=== PATIENT | male | born 1955 | race Caucasian/White ===

== ENCOUNTER 2021-01-30 03:56 | Emergency (ER) | payer OTHER ==
[~2021-01-30] VITALS: Ht 180.3 cm; Wt 113.4 kg
[2021-01-30 04:05] VITALS: BP_SYST 123
[2021-01-30] MEDS ORDERED: HYDR25TA4 PO (04:25)
[2021-01-30 04:36] LABS: BASOPHILS # (AUTO) 0.1 K/uL (0.0-0.2); BASOPHILS % (AUTO) 1.3 % (0.0-2.0); EOSINOPHILS # (AUTO) 0.1 K/uL (0.0-0.4); HEMOGLOBIN 14.3 g/dL (14.0-18.0); LYMPHOCYTES # (AUTO) 1.3 K/uL (1.0-5.5); LYMPHOCYTES % (AUTO) 25.9 % (20.5-51.5); MEAN CORPUSCULAR HEMOGLOBIN 32 pg (27-31); MEAN CORPUSCULAR HGB CONC 34 % (32-36); MEAN CORPUSCULAR VOLUME 94 fL (79.0-98.0); MONOCYTES # (AUTO) 0.8 K/uL (0.0-1.0); MONOCYTES % (AUTO) 15.6 % (1.7-9.3); NEUTROPHILS # (AUTO) 2.8 K/uL (1.8-7.7); NEUTROPHILS % (AUTO) 56.2 % (40.0-70.0); PLATELET COUNT (AUTO) 143 K/uL (130-430); RED BLOOD CELL COUNT(AUTO) 4.45 MIL/uL (4.2-6.2); RED CELL DISTRIBUTION WIDTH 16.6 % (9.0-15.0)
[2021-01-30 04:47] LABS: CALCIUM 9.2 mg/dL (8.4-11.0); CREATININE 0.89 mg/dL (0.55-1.30); POTASSIUM 3.5 mmol/L (3.5-5.1)
[2021-01-30 04:52] LABS: TOTAL BILIRUBIN 1.2 mg/dL (0.0-1.0)
[2021-01-30] MEDS ORDERED: IPRATROPIUM/ALBUTEROL SULFATE 3 ML AMPUL.NEB (DUONEB) INH ONE (05:00)
[2021-01-30] MEDS ORDERED: IPRATROPIUM/ALBUTEROL SULFATE 3 ML AMPUL.NEB (DUONEB) ONE (05:04)
[2021-01-30] MEDS ORDERED: IOHEXOL 350 mgI/mL, 150 ML INFUS..BTL IV ONE (05:38)
[2021-01-30] MEDS ORDERED: NACL 0.9% 1,000 ML IV ONE (05:45)
[2021-01-30] MEDS ORDERED: FUROSEMIDE 20 MG/2 ML VIAL IVP ONE (07:15)
[2021-01-30] MEDS ORDERED: DEXAMETHASONE SOD PHOSPHATE 10 MG/ML VIAL IVP ONE (07:15)
[2021-01-30] MEDS ORDERED: FURO-150 PO (07:29)
[2021-01-30] MEDS ORDERED: POTA8CAP20 PO (07:29)
[2021-01-30] MEDS ORDERED: PRED20TA PO (07:29)
[2021-01-30] MEDS ORDERED: ALBMDI INH (07:29)
[2021-01-30 08:55] VITALS: BP_SYST 143
== END 2021-01-30 08:55 | disposition home or self-care (01) ==
LOC: SED 03:56
DX: J98.01 Acute bronchospasm (principal); I50.9 Heart failure, unspecified; Z79.899 Other long term (current) drug therapy; Z20.822 Contact with and (suspected) exposure to COVID-19
CPT/HCPCS: 36415; 71045; 71275; 76376; 80053; 83880; 84484; 85025; 85379; 85610; 85730; 87426; 93005; 94640; 96361; 96374; 96375; 99285; J1100; J1940; J7040; Q9967

== ENCOUNTER 2022-04-10 14:08 | Inpatient (IN) | payer OTHER ==
[~2022-04-10] VITALS: Ht 177.8 cm; Wt 94.4 kg
[~2022-04-10 14:08] MED LIST: ALBMDI INH; FURO-150 PO; HYDR25TA4 PO; POTA8CAP20 PO; PRED20TA PO
--- NOTE | 2022-04-10 14:08 | NUR ---
PT PLACED IN BED 7. REPORT TO LENA OCASIO
--- NOTE | 2022-04-10 14:09 | NUR ---
MD ROCHA AT BEDSIDE ASSESSING PT.
[2022-04-10 14:24] VITALS: BP_SYST 103
--- NOTE | 2022-04-10 14:41 | NUR ---
IV ACCESS TO THE LEFT AC IN ONE ATTEMPT WITH 20G. BLOOD DRAWN AT SAME TIME.
--- NOTE | 2022-04-10 14:51 | NUR ---
PT IN CT AT THIS TIME, AT BEDSIDE
[2022-04-10 14:59] LABS: BASOPHILS % (AUTO) 0.3 % (0.0-2.0); EOSINOPHILS % (AUTO) 0.1 % (0.0-4.0); HEMATOCRIT 30.8 % (36-54); HEMOGLOBIN 10.5 g/dL (14.0-18.0); LYMPHOCYTES # (AUTO) 0.4 K/uL (1.0-5.5); LYMPHOCYTES % (AUTO) 3.1 % (20.5-51.5); MEAN CORPUSCULAR HEMOGLOBIN 34 pg (27-31); MEAN CORPUSCULAR HGB CONC 34 % (32-36); MEAN CORPUSCULAR VOLUME 101 fL (79.0-98.0); MONOCYTES # (AUTO) 0.5 K/uL (0.0-1.0); MONOCYTES % (AUTO) 4.1 % (1.7-9.3); NEUTROPHILS % (AUTO) 92.4 % (40.0-70.0); PLATELET COUNT (AUTO) 392 K/uL (130-430); RED BLOOD CELL COUNT(AUTO) 3.05 MIL/uL (4.2-6.2); RED CELL DISTRIBUTION WIDTH 15.2 % (9.0-15.0)
[2022-04-10 15:09] LABS: INR 1.9 (0.80-1.20); PROTHROMBIN TIME 18.9 SECS (9.5-12.5)
[2022-04-10 15:14] LABS: ANION GAP 17 (5-15); CALCIUM 7.8 mg/dL (8.4-11.0); CHLORIDE 112 mmol/L (98-107); CREATININE 3.72 mg/dL (0.55-1.30); GLUCOSE 105 mg/dL (70-99); SODIUM SERUM 139 mmol/L (136-145); UREA NITROGEN, BLOOD 58 mg/dL (8-21)
[2022-04-10 15:19] LABS: GFR AFRICAN AMERICAN 21 mL/min (>90)
[2022-04-10] MEDS ORDERED: NACL 0.9% 1,000 ML IV ONE (15:30)
[2022-04-10 15:31] LABS: ALANINE AMINOTRANSFERASE 99 U/L (12-78); ALBUMIN 1.3 g/dL (3.4-4.8); ASPARTATE AMINOTRANSFERASE 182 U/L (10-37)
[2022-04-10 15:35] LABS: ACETAMINOPHEN < 1 ug/mL (1-30); ALCOHOL, BLOOD < 3 mg/dL (<10)
[2022-04-10 15:36] LABS: TOTAL BILIRUBIN 26.4 mg/dL (0.0-1.0)
--- NOTE | 2022-04-10 15:36 | NUR ---
TOTAL BILI 26.4 ERMD AWARE
--- NOTE | 2022-04-10 16:24 | NUR ---
ABGS DRAWN AT THIS TIME
[2022-04-10] MEDS ORDERED: LACTULOSE 20 GM/30 ML UDC PO ONE (17:30)
--- NOTE | 2022-04-10 17:48 | NUR ---
Admit bed requested Patient will be admitted to care of Dr. Patel. Admitted to ICU unit. Diagnosis Metabolic encephalopathy Inpatient (Yes or No) Y Observation (Yes or No) N Orientation concerns or request close to nursing station (Yes or No) N Covid Status Neg On vent or bipap N Isolation requirements N Needs a sitter N From Home (Yes or if No enter name of facility) Y Requires Dialysis (Yes or No) N Med Rec Completed (Yes of No) Y
[2022-04-10] MEDS ORDERED: LACTULOSE 20 GM/30 ML UDC NG SCH (18:00)
--- NOTE | 2022-04-10 18:01 | NUR ---
US AT BEDSIDE AT THIS TIME
[2022-04-10] MEDS: D5NS 1,000 ML IV SCH (18:53)
--- NOTE | 2022-04-10 18:58 | NUR ---
NG TUBE PLACED AT THIS TIME
--- NOTE | 2022-04-10 19:20 | NUR ---
Received report at this time. Pt lying in stretcher currently on monitor.
--- NOTE | 2022-04-10 19:45 | NUR ---
Attempted to place ng tube; however, device recoiled up in mouth. 1rst ng tube placed by previous nurse is not placed properly according to imaging.
--- NOTE | 2022-04-10 20:14 | NUR ---
Endorsed ng tube placement and medication lactulose off to icu nurse.
--- NOTE | 2022-04-10 20:15 | NUR ---
Patient will be admitted to care of Dr. Bo . Admitted to icu unit. Will go to room 7 . Belongings list completed. Complete and up to date summary report printed. SBAR report given to NINFA Coughlin at bedside with opportunity for questions.
[2022-04-10 20:25] VITALS: BP_SYST 114
--- NOTE | 2022-04-10 20:25 | NUR ---
Opening notes Received report from endorsing RAYON CONERNINFA King for continuity of care. Patient is lying in the gurney and was transferred to ICU bed in no signs of distress. Patient has a IV access on the L AC 20 gauge running is D5NS @ 150 mL/hr. Patient's vital signs blood pressure 114/49, heart rate 77, respirations 17, and SPO2 96% on room air. Bed is locked and in lowest position, fall and safety precautions is in place.
[2022-04-10] MEDS ORDERED: LevALBUTEROL HCL 1.25 MG/0.5 ML *CONC.* VIAL.NEB (XOPENEX CONC.) INH PRN (20:45)
[2022-04-10 21:00] VITALS: BP_SYST 124
[2022-04-10 21:06] VITALS: BP_SYST 101
[2022-04-10 22:00] VITALS: BP_SYST 119
[2022-04-10 23:00] VITALS: BP_SYST 112
--- NOTE | 2022-04-10 23:00 | NUR ---
NG Tube and Paulson Catheter Inserted right NG tube and paulson catheter per MD's order. Patient tolerated the procedure. Confirmed placement of the NG tube via x-ray.
[2022-04-10] MEDS: LevALBUTEROL HCL 1.25 MG/0.5 ML *CONC.* VIAL.NEB (XOPENEX CONC.) INH SCH (23:05)
[2022-04-11] VITALS (23 sets, daily range): BP systolic 105–142
[2022-04-11] MEDS: METHYLPREDNISOLONE SOD SUCC 40 MG/ML VIAL IVP SCH ×3 (00:20→20:52)
[2022-04-11] MEDS: PANTOPRAZOLE SODIUM 40 MG/VIAL (PROTONIX) IVP SCH ×3 (00:21→20:52)
[2022-04-11] MEDS: D5NS 1,000 ML IV SCH ×4 (00:44→20:54)
--- NOTE | 2022-04-11 05:08 | NUR ---
PAGED DR. DUNBAR FOR CONSULT. SPOKE TO ON-CALL AGENT: APRIL AND WILL RELAY THE MESSAGE. -JOAN SEGOVIA RN
--- NOTE | 2022-04-11 05:16 | NUR ---
PAGED DR. HURTADO FOR CONSULT. SPOKE TO ON-CALL AGENT: TOMER AND WILL RELAY THE MESSAGE. -JOAN SEOGVIA RN
[2022-04-11 06:33] LABS: BASOPHILS % (AUTO) 0.1 % (0.0-2.0); EOSINOPHILS % (AUTO) 0.1 % (0.0-4.0); HEMATOCRIT 27.4 % (36-54); HEMOGLOBIN 9.3 g/dL (14.0-18.0); LYMPHOCYTES # (AUTO) 0.2 K/uL (1.0-5.5); LYMPHOCYTES % (AUTO) 2.5 % (20.5-51.5); MEAN CORPUSCULAR HEMOGLOBIN 35 pg (27-31); MEAN CORPUSCULAR HGB CONC 34 % (32-36); MEAN CORPUSCULAR VOLUME 102 fL (79.0-98.0); MONOCYTES # (AUTO) 0.2 K/uL (0.0-1.0); MONOCYTES % (AUTO) 2.8 % (1.7-9.3); NEUTROPHILS % (AUTO) 94.5 % (40.0-70.0); PLATELET COUNT (AUTO) 308 K/uL (130-430); RED CELL DISTRIBUTION WIDTH 15.4 % (9.0-15.0); WHITE BLOOD COUNT (AUTO) 8.4 K/uL (4.8-10.8)
[2022-04-11 06:47] LABS: ALBUMIN 1.2 g/dL (3.4-4.8); CALCIUM 7.1 mg/dL (8.4-11.0); POTASSIUM 3.8 mmol/L (3.5-5.1)
[2022-04-11] MEDS: LevALBUTEROL HCL 1.25 MG/0.5 ML *CONC.* VIAL.NEB (XOPENEX CONC.) INH SCH ×2 (07:31→15:36)
[2022-04-11] MEDS ORDERED: LACTULOSE 20 GM/30 ML UDC PO ONE (07:45)
[2022-04-11] MEDS ORDERED: RIFAXIMIN 550 MG TABLET PO ONE (08:00)
--- NOTE | 2022-04-11 09:01 | NUR ---
NOTIFIED OF CONSULT ( TRAFFIC ATTENDANT) ORDERING PHY: REASON FOR CONSULT: GI DIALED: [phone] SPOKE TO: GABE
[2022-04-11] MEDS: ALBUMIN HUMAN 25% 50 ML IV SCH ×3 (09:23→16:39)
[2022-04-11 10:00] LABS: TOTAL BILIRUBIN 24.6 mg/dL (0.0-1.0)
[2022-04-11 12:00] LABS: INR 1.9 (0.80-1.20)
[2022-04-11 12:05] LABS: PROTHROMBIN TIME 19.2 SECS (9.5-12.5)
[2022-04-11] MEDS: SODIUM BICARBONATE 8.4% JECT 150 MEQ in D5W 1,000 ML IVP SCH (13:23)
[2022-04-11] MEDS: PIPERACILLIN/TAZO 2.25G/DEX-IS 50 ML IV SCH ×3 (13:51→23:31)
[2022-04-11] MEDS: RIFAXIMIN 550 MG TABLET PO SCH ×2 (13:53→20:52)
[2022-04-11] MEDS: LACTULOSE 20 GM/30 ML UDC PO SCH ×3 (15:00→20:52)
[2022-04-11] MEDS ORDERED: HEPARIN SODIUM,PORCINE 5,000 UNITS/ML VIAL ONE (17:25)
[2022-04-12] VITALS (22 sets, daily range): BP systolic 108–139
[2022-04-12] MEDS: PIPERACILLIN/TAZO 2.25G/DEX-IS 50 ML IV SCH ×2 (05:33→18:18)
[2022-04-12] MEDS: SODIUM BICARBONATE 8.4% JECT 150 MEQ in D5W 1,000 ML IVP SCH ×2 (05:34→18:18)
[2022-04-12] MEDS: D5NS 1,000 ML IV SCH (05:34)
[2022-04-12 06:10] LABS: BASOPHILS % (AUTO) 0.2 % (0.0-2.0); LYMPHOCYTES # (AUTO) 0.2 K/uL (1.0-5.5); LYMPHOCYTES % (AUTO) 2.6 % (20.5-51.5); MEAN CORPUSCULAR HEMOGLOBIN 35 pg (27-31); MEAN CORPUSCULAR HGB CONC 35 % (32-36); MEAN CORPUSCULAR VOLUME 100 fL (79.0-98.0); MONOCYTES # (AUTO) 0.5 K/uL (0.0-1.0); NEUTROPHILS # (AUTO) 8.6 K/uL (1.8-7.7); NEUTROPHILS % (AUTO) 92.2 % (40.0-70.0); PLATELET COUNT (AUTO) 289 K/uL (130-430); RED CELL DISTRIBUTION WIDTH 15.7 % (9.0-15.0); WHITE BLOOD COUNT (AUTO) 9.3 K/uL (4.8-10.8)
[2022-04-12 06:41] LABS: ALBUMIN 1.7 g/dL (3.4-4.8); CREATININE 3.91 mg/dL (0.55-1.30)
[2022-04-12] MEDS: LevALBUTEROL HCL 1.25 MG/0.5 ML *CONC.* VIAL.NEB (XOPENEX CONC.) INH SCH ×4 (06:42→23:00)
--- NOTE | 2022-04-12 08:30 | NUR ---
NURSING STRAWN CATHETER SITE CLEANED ASEPTICALLY, BIOPATCH APPLIED AND COVERED WITH TRANSPARENT DRESSING.
[2022-04-12] MEDS: LACTULOSE 20 GM/30 ML UDC PO SCH ×3 (08:52→22:30)
[2022-04-12] MEDS: PANTOPRAZOLE SODIUM 40 MG/VIAL (PROTONIX) IVP SCH ×2 (08:52→22:30)
[2022-04-12] MEDS: RIFAXIMIN 550 MG TABLET PO SCH ×2 (08:52→22:30)
[2022-04-12] MEDS: METHYLPREDNISOLONE SOD SUCC 40 MG/ML VIAL IVP SCH ×2 (08:52→22:30)
[2022-04-12 09:16] LABS: TOTAL BILIRUBIN 27.6 mg/dL (0.0-1.0)
--- NOTE | 2022-04-12 10:35 | NUR ---
ABG PAGED DR WAN AND HE RETURNED THE CALL. MADE AWARE OF LATEST ABG RESULT, NO NEW ORDERS RECEIVED.
[2022-04-12] MEDS: HEPARIN SODIUM,PORCINE 5,000 UNITS/ML VIAL SUBCUT SCH ×2 (11:55→22:33)
--- NOTE | 2022-04-12 12:07 | NUR ---
Dietitian Recommendations * Initiate nutrition support when medically appropriate. * Nepro at 30 ml/hr (goal rate), FWF per d/t HD * Provides 1296 kcals/day, 58 g protein/day, 523 ml free water * Meeting 57% lower end of estimated caloric needs and 97% of upper end of estimated protein needs. Please refer to Nutrition Assessment for details. Addendum: 04/12/22 at [address] Amended: Links added.
--- NOTE | 2022-04-12 12:10 | NUR ---
HD DIALYSIS IN PROGRESS AT THIS HOUR.
[2022-04-12] MEDS ORDERED: HEPARIN SODIUM, PORCINE 10,000 UNITS/ 10 ML VIAL MC ONE ×2 (12:15→13:45)
--- NOTE | 2022-04-12 13:13 | NUR ---
Report given to Alejandro at [facility] [phone]. She asked to have MD address stability for transfer, possible DC tomorrow after initial dialysis is completed.
[2022-04-12] MEDS ORDERED: HEPARIN SODIUM,PORCINE 5,000 UNITS/ML VIAL ONE (14:17)
--- NOTE | 2022-04-12 15:40 | NUR ---
WOUND EVALUATION: Late note for 04/12/22 at 1540 secondary to patient care. Wound Consult received from Dr. Patel. Thank you, Dr. Patel, for the consult. Patient received in a [place] Bed with an IsoFlex SHOAIB mattress, nonverbal, nonresponsive to verbal commands. Patient is unable to turn independently. Jorge Score is a 12. Past Medical History: End-Stage Liver Failure, Alcoholic Liver Cirrhosis, Chronic Kidney Disease, Right-sided Hemicolectomy and Colostomy placement, Stage 3 Colon CA. Patient has not been eating or drinking and his level of consciousness getting worse since he was discharged home from [facility] 5 days ago. Recent Labs: WBC 9.3, RBC 2.60, hemoglobin 9.0, hematocrit 26.0, potassium 3.0, chloride 116, carbon dioxide 13, BUN 60, creatinine 3.91, GFR 17, glucose 136, calcium 7.0, total bilirubin 27.5, AST 165, ALT 99, alkaline phosphatase 255, serum total protein 4.7, albumin 1.7, PT 19.2, INR 1.9, PTT 47.2. Microbiology: Blood culture results x2 in progress. MRSA screen results positive. Intrinsic factors that delay wound healing: End-Stage Liver Failure, Alcoholic Liver Cirrhosis, Chronic Kidney Disease, Stage 3 Colon CA. Extrinsic factors that delay wound healing: Immobility. Wound Assessment: 1. Sacral-Coccygeal area: Unstageable pressure ulcer, present on admission. Wound bed has 100% yellow slough. No odor, no drainage. Periwound intact. Wound measures 4.7 cm x 2.7 cm. Recommend: Cleanse wound with normal saline. Apply moisture barrier cream to periwound. Apply Venelex ointment to wound bed. Cover site with sacral foam dressing. Perform wound care daily, and as needed for dressing soiling or dislodgment. 2. Left Heel: Blanchable redness, present on admission. 3. Right Heel: Blanchable redness, present on admission. 4. Right Lateral Heel: Blanchable redness, present on admission. 5. Right Lateral Mid Border of Foot: Blanchable redness, present on admission. 6. Right Lateral Fifth Metatarsal Head: Blanchable redness, present on admission. Recommend: Cover blanchable red areas with foam dressings. Change dressings every 3 days and as needed for dressing soiling or dislodgment. Offload bilateral heels ankles feet and harika prominence areas at all times by placing 1 pillow lengthwise under each extremity and 1 pillow horizontally underneath left and right vertical pillows. Do not allow any portion of foot to touch bed or other surfaces at any time. 7. Right Lateral Trunk: Several flat open blisters without fluid, along with two open dry red nonintact skin areas that were blisters, present on admission. Recommend: Cleanse sites with normal saline. Apply moisture barrier cream to sites. Cover sites with foam dressings. Perform site care daily, and as needed for dressing soiling or dislodgement. Also recommend: Reposition patient side to side only every 2 hours with pillow support and off-load pressure areas with pillows for pressure re-distribution. Offload bilateral heels ankles feet and harika prominence areas at all times by placing 1 pillow lengthwise under each extremity and 1 pillow horizontally underneath left and right vertical pillows. Do not allow any portion of foot to touch bed or other surfaces at any time. Perform skin care and monitor skin integrity Q shift. Use moisture barrier cream on buttocks and other moisture susceptible areas QID and as needed for soiling. Place patient on a low air-loss mattress.
--- NOTE | 2022-04-12 15:40 | NUR ---
SKIN CARE SENIOR SALES OPERATIONS MANAGER AT BEDSIDE, SKIN TREATMENT DONE TO COCCYX, FOAM DRESSING APPLIED.
[2022-04-12] MEDS ORDERED: MUPIROCIN 1 GM OIN.PF.APP NS SCH (21:00)
--- NOTE | 2022-04-12 21:01 | NUR ---
PHONED PAGED DR LANA DE LA CRUZ FAMILY HERE RONNIE CUEVAS , WANTS TO MAKE THE CODE STATUS , DNR COMFORT MEASURES ONLY / .
--- NOTE | 2022-04-12 21:31 | NUR ---
Received call from DR LANA DE LA CRUZ , NEW ORDERS , Patient DNR comfort measures only family , is here at the bed side .
--- NOTE | 2022-04-12 23:14 | NUR ---
COLLECTOMY Bag intact skin site WNL 300 ML out yellow light brown fluid , noted .
[2022-04-13] VITALS (24 sets, daily range): BP systolic 80–152
[2022-04-13] MEDS: PIPERACILLIN/TAZO 2.25G/DEX-IS 50 ML IV SCH ×4 (00:12→17:29)
--- NOTE | 2022-04-13 05:33 | NUR ---
CHG Bed Bath , AM care provided , general edema is noted position change also tolerated .
[2022-04-13 06:06] LABS: BASOPHILS % (AUTO) 0.2 % (0.0-2.0); HEMATOCRIT 26.5 % (36-54); HEMOGLOBIN 9.2 g/dL (14.0-18.0); LYMPHOCYTES # (AUTO) 0.5 K/uL (1.0-5.5); LYMPHOCYTES % (AUTO) 5.5 % (20.5-51.5); MEAN CORPUSCULAR HEMOGLOBIN 35 pg (27-31); MEAN CORPUSCULAR HGB CONC 35 % (32-36); MEAN CORPUSCULAR VOLUME 99 fL (79.0-98.0); MONOCYTES # (AUTO) 0.6 K/uL (0.0-1.0); MONOCYTES % (AUTO) 6.2 % (1.7-9.3); NEUTROPHILS # (AUTO) 8.4 K/uL (1.8-7.7); NEUTROPHILS % (AUTO) 88.1 % (40.0-70.0); PLATELET COUNT (AUTO) 208 K/uL (130-430); RED BLOOD CELL COUNT(AUTO) 2.67 MIL/uL (4.2-6.2); RED CELL DISTRIBUTION WIDTH 15.2 % (9.0-15.0); WHITE BLOOD COUNT (AUTO) 9.5 K/uL (4.8-10.8)
[2022-04-13 06:25] LABS: ALBUMIN 1.4 g/dL (3.4-4.8); CALCIUM 8.1 mg/dL (8.4-11.0); CREATININE 3.05 mg/dL (0.55-1.30)
[2022-04-13] MEDS: LevALBUTEROL HCL 1.25 MG/0.5 ML *CONC.* VIAL.NEB (XOPENEX CONC.) INH SCH ×3 (07:00→23:36)
[2022-04-13 07:43] LABS: POTASSIUM 2.8 mmol/L (3.5-5.1)
--- NOTE | 2022-04-13 07:43 | NUR ---
CRITICAL LAB: Laboratory called with critical lab value [K+ AND BILIRUBIN ]. Medical record number and patient name verified. Read back of values done. NOTIFIED
[2022-04-13] MEDS: RIFAXIMIN 550 MG TABLET PO SCH ×2 (09:27→21:16)
[2022-04-13] MEDS: PANTOPRAZOLE SODIUM 40 MG/VIAL (PROTONIX) IVP SCH ×2 (09:27→21:15)
[2022-04-13] MEDS: METHYLPREDNISOLONE SOD SUCC 40 MG/ML VIAL IVP SCH ×2 (09:27→21:15)
[2022-04-13] MEDS: LACTULOSE 20 GM/30 ML UDC PO SCH ×3 (09:27→21:16)
[2022-04-13] MEDS: HEPARIN SODIUM,PORCINE 5,000 UNITS/ML VIAL SUBCUT SCH ×2 (09:28→21:18)
[2022-04-13] MEDS: MUPIROCIN 2% TOPICAL OINTMENT 22 GM NS SCH ×2 (09:29→21:21)
[2022-04-13] MEDS ORDERED: HEPARIN SODIUM,PORCINE 5,000 UNITS/ML VIAL MC ONE (10:30)
[2022-04-13] MEDS ORDERED: ALBUMIN HUMAN 25% 200 ML IV ONE (10:30)
[2022-04-13] MEDS ORDERED: NOREPINEPHRINE 4 MG/4 ML VIAL IV ONE (12:16)
[2022-04-13] MEDS: NOREPINEPHRINE BITARTRATE 16 MG in NS 234 ML IV PRN (12:34)
[2022-04-13] MEDS: SODIUM BICARBONATE 8.4% JECT 150 MEQ in D5W 1,000 ML IVP SCH (12:39)
--- NOTE | 2022-04-13 12:40 | NUR ---
HEMODIALYSIS PT ON 2ND TREATMENT, HE'S LETHARGIC, ON O2 VIA NASAL CANNULA, AT BEDSIDE. CONTINUE TO MONITOR PT.
--- NOTE | 2022-04-13 14:54 | NUR ---
Notified [facility] disaster recovery analyst-Ariel- patient is on Levophed Gtt-not stable for transfer to [facility] today. I spoke w/ patient's regarding transfer to [facility] when patient is medically stable. She stated understanding and agreement with transfer when patient is medically stable.
[2022-04-13] MEDS: KCL 20 mEq in 100 mL (PREMIX) 100 ML IV SCH ×2 (15:53→17:28)
--- NOTE | 2022-04-13 15:53 | NUR ---
LOW K LEVEL. DR HURTADO GAVE MED ORDERS, KRIDER 40 MEQ. ORDERS CARRIED OUT.
--- NOTE | 2022-04-13 19:15 | NUR ---
change of shift.pt.presents isolation status;contact;mrsa;nares.pt.presents hx;hemo-dialysis.h/d access location.rt.inj;lory cath w pigtail.pt.presents picc line location:rt.bicept intact;patent.iv fluids/drip:levophed infusing.pt.presents colostomy.location rlq.pt.presents paulson cath intact;patent.call light w/in access of the pt.
--- NOTE | 2022-04-13 20:00 | NUR ---
pt.assessed.v/s assessed values note b/p status wnl.o2-sat%=96%.ng-tube intact ng-tube feed infusing.picc line intact;iv fluids drip/levophed infusing.colostomy intact;attended to.paulson cath intact;patent per flacc pain mgx pt.absent facial grimaces/body posturing.pt.assessed for cleanliness.pt.repositioned.call light placed w/in access of the pt.
--- NOTE | 2022-04-13 21:00 | NUR ---
2100p medications administered via ng-tube.ng-tube feed residuals assessed note 1oml.ng-tube flushed w/out resistance.call light w/in access of the pt.
--- NOTE | 2022-04-13 22:00 | NUR ---
pt.assessed.v/s assessed values note b/p status wnl.o2-sat%=96%.ng-tube intact ng-tube feed infusing.picc line intact; iv fluids/drip;levophed infusing.colostomy intact;patent.paulson cath intact;patent.per flacc pain mgx pt.absent facial grimaces/ body posturing.pt.assessed for cleanliness.pt.repositioned.call light placed w/in access of the pt.
[2022-04-14] VITALS (18 sets, daily range): BP systolic 106–155
--- NOTE | 2022-04-14 | NUR ---
pt.assessed.v/s assessed values note b/p status.02-sat%=96%.ng-tube intact.ng-tube feed infusing.picc line intact;iv fluids/ drip:levophed infusing.colostomy intact;patent;attended to.paulson cath intact;patent.per flacc pain mgx pt.absent facial grimaces/body posturing.pt.assessed for cleanliness.pt.repositioned.call light placed w/in access of the pt.
[2022-04-14] MEDS: PIPERACILLIN/TAZO 2.25G/DEX-IS 50 ML IV SCH ×5 (00:24→23:45)
--- NOTE | 2022-04-14 02:00 | NUR ---
pt.assessed.v/s assessed values note b/p status.02-sat%=98%.ng-tube intact;patent.ng-tube feed infusing.picc line iv fluids/drip;levophed infusing.colostomy intact;patent.paulson cath intact;patent.per flacc pain mgx pt.absent facial grimaces/ body posturing.pt.assessed for cleanliness..pt.repositioned.call light placed w/in access of the pt.
--- NOTE | 2022-04-14 04:00 | NUR ---
pt.assessed.v/s assessed values note b/p status.o2-sat%=98%.ng-tube intact.ng-tube feed infusing.picc line intact;iv fluids/drip;levophed infusing.per flacc pain mgx pt.absent facial grimaces/body posturing.pt.assessed for cleanliness.pt.repositioned. call light placed w/in access of the pt.
[2022-04-14] MEDS: SODIUM BICARBONATE 8.4% JECT 150 MEQ in D5W 1,000 ML IVP SCH (05:49)
--- NOTE | 2022-04-14 06:00 | NUR ---
pt.assessed.pt.had removed the ng-tube.v/s assessed values wnl.note b/p status.picc line intact iv fluids/drip;levophed infusing.colostomy intact;patent.colostomy intact;patent attended to.paulson cath intact;patent.per flacc pain mgx pt. absent facial grimaces/body posturing.pt.assessed for cleanliness.pt.repositioned.call light placed w/in access of the pt.
[2022-04-14 06:55] LABS: PROTHROMBIN TIME 20.4 SECS (9.5-12.5)
[2022-04-14 07:11] LABS: ALBUMIN 2.2 g/dL (3.4-4.8); BILIRUBIN,DIRECT 21.5 mg/dL (0.0-0.3)
[2022-04-14 07:20] LABS: TOTAL BILIRUBIN 27.4 mg/dL (0.0-1.0)
[2022-04-14] MEDS: LevALBUTEROL HCL 1.25 MG/0.5 ML *CONC.* VIAL.NEB (XOPENEX CONC.) INH SCH ×2 (07:38→16:01)
--- NOTE | 2022-04-14 08:04 | NUR ---
ARRIVED ON SHIFT AT 0700, ASSISTED IRONWORKER RN BECAUSE PATIENT HAD PULLED OUT HIS NGT, NGT WAS REINSERTED INTO THE LEFT VILA AND PLACEMENT VERIFIED WITH AUSCULTATION BUT CHEST XRAY ORDERED TO CONFIRM PLACEMENT, REPORTED TO DR SCHWARTZ THAT PATIENT REMOVED HIS NGT AND IT HAD TO BE REINSERTED AND HE ORDERED BILATERAL SOFT WRIST RESTRAINTS TO BE PLACED.
[2022-04-14] MEDS: RIFAXIMIN 550 MG TABLET PO SCH ×2 (08:11→23:49)
[2022-04-14] MEDS: LACTULOSE 20 GM/30 ML UDC PO SCH ×3 (08:11→23:46)
[2022-04-14] MEDS: MUPIROCIN 2% TOPICAL OINTMENT 22 GM NS SCH ×2 (08:12→23:50)
[2022-04-14] MEDS: METHYLPREDNISOLONE SOD SUCC 40 MG/ML VIAL IVP SCH ×2 (08:12→23:51)
[2022-04-14] MEDS: PANTOPRAZOLE SODIUM 40 MG/VIAL (PROTONIX) IVP SCH ×2 (08:12→23:53)
[2022-04-14] MEDS: HEPARIN SODIUM,PORCINE 5,000 UNITS/ML VIAL SUBCUT SCH ×2 (08:16→23:57)
[2022-04-14 09:45] LABS: BASOPHILS % (AUTO) 0.2 % (0.0-2.0); HEMOGLOBIN 8.5 g/dL (14.0-18.0); LYMPHOCYTES # (AUTO) 0.3 K/uL (1.0-5.5); LYMPHOCYTES % (AUTO) 2.7 % (20.5-51.5); MEAN CORPUSCULAR HEMOGLOBIN 34 pg (27-31); MEAN CORPUSCULAR HGB CONC 34 % (32-36); MEAN CORPUSCULAR VOLUME 98 fL (79.0-98.0); MONOCYTES # (AUTO) 0.7 K/uL (0.0-1.0); MONOCYTES % (AUTO) 5.7 % (1.7-9.3); NEUTROPHILS # (AUTO) 10.5 K/uL (1.8-7.7); NEUTROPHILS % (AUTO) 91.4 % (40.0-70.0); PLATELET COUNT (AUTO) 171 K/uL (130-430); RED BLOOD CELL COUNT(AUTO) 2.54 MIL/uL (4.2-6.2); RED CELL DISTRIBUTION WIDTH 15.4 % (9.0-15.0); WHITE BLOOD COUNT (AUTO) 11.5 K/uL (4.8-10.8)
[2022-04-14 10:04] LABS: CALCIUM 7.2 mg/dL (8.4-11.0); CREATININE 2.79 mg/dL (0.55-1.30); POTASSIUM 3.1 mmol/L (3.5-5.1)
[2022-04-14 10:23] LABS: TOTAL BILIRUBIN 27.5 mg/dL (0.0-1.0)
--- NOTE | 2022-04-14 12:00 | NUR ---
no s/s of distress, communicating with at bedside, alert, a/ox2, forgetful, educated on plan of care, answered questions as appropriate.
[2022-04-14] MEDS: KCL 10 mEq in 50 mL (PREMIX) 50 ML IV SCH (23:52)
[2022-04-15] VITALS (17 sets, daily range): BP systolic 80–123
[2022-04-15] MEDS ORDERED: KCL 10 mEq in 50 mL (PREMIX) 50 ML IV ONE ×2 (04:15→04:35)
[2022-04-15] MEDS: KCL 10 mEq in 50 mL (PREMIX) 50 ML IV SCH ×4 (04:17→17:04)
[2022-04-15] MEDS: SODIUM BICARBONATE 8.4% JECT 150 MEQ in D5W 1,000 ML IVP SCH (06:16)
[2022-04-15] MEDS: PIPERACILLIN/TAZO 2.25G/DEX-IS 50 ML IV SCH ×3 (06:17→17:04)
[2022-04-15 06:59] LABS: BASOPHILS % (AUTO) 0.4 % (0.0-2.0); EOSINOPHILS # (AUTO) 0.1 K/uL (0.0-0.4); EOSINOPHILS % (AUTO) 0.6 % (0.0-4.0); HEMATOCRIT 24.9 % (36-54); HEMOGLOBIN 8.6 g/dL (14.0-18.0); LYMPHOCYTES # (AUTO) 0.4 K/uL (1.0-5.5); LYMPHOCYTES % (AUTO) 3.2 % (20.5-51.5); MEAN CORPUSCULAR HEMOGLOBIN 34 pg (27-31); MEAN CORPUSCULAR HGB CONC 34 % (32-36); MEAN CORPUSCULAR VOLUME 98 fL (79.0-98.0); MONOCYTES # (AUTO) 0.7 K/uL (0.0-1.0); MONOCYTES % (AUTO) 5.6 % (1.7-9.3); NEUTROPHILS # (AUTO) 10.7 K/uL (1.8-7.7); NEUTROPHILS % (AUTO) 90.2 % (40.0-70.0); PLATELET COUNT (AUTO) 148 K/uL (130-430); RED BLOOD CELL COUNT(AUTO) 2.54 MIL/uL (4.2-6.2); RED CELL DISTRIBUTION WIDTH 15.2 % (9.0-15.0); WHITE BLOOD COUNT (AUTO) 11.8 K/uL (4.8-10.8)
--- NOTE | 2022-04-15 07:30 | NUR ---
patient in bed, no s/s of distress, ngt removed by patient during the night, per shift supervisor rn nurse Alonso she stated that the physician rounded and after the patient removed his ngt and stated the patient no longer needs the ngt and he can start on oral feeding but there is no order for a diet in the system, will follow up. shubham picc line intact patent, rij lory cath, scheduled for dialysis today, paulson draining dark anika urine, colostomy intact with thin liquid output. sacral wound dressing cdi, jaundiced, a/ox2, safety measures in place, will continue to monitor.
--- NOTE | 2022-04-15 08:20 | NUR ---
CALLED AND NOTIFIED DR SCHWARTZ THAT PATIENT PULLED OUT NGT TUBE DURING THE NIGHT AND THAT HE IS ABLE TO SWALLOW THIN LIQUIDS, ORDERED TO PUT PATIENT ON A PUREED DIET.
[2022-04-15] MEDS: LevALBUTEROL HCL 1.25 MG/0.5 ML *CONC.* VIAL.NEB (XOPENEX CONC.) INH SCH ×2 (08:23→16:03)
[2022-04-15] MEDS: RIFAXIMIN 550 MG TABLET PO SCH ×2 (08:26→22:17)
[2022-04-15] MEDS: LACTULOSE 20 GM/30 ML UDC PO SCH ×3 (08:26→22:17)
[2022-04-15] MEDS: BALSAM PERU/CASTOR OIL 56.7 GM OINT...G. TP SCH (08:27)
[2022-04-15] MEDS: PANTOPRAZOLE SODIUM 40 MG/VIAL (PROTONIX) IVP SCH ×2 (08:27→22:16)
[2022-04-15] MEDS: METHYLPREDNISOLONE SOD SUCC 40 MG/ML VIAL IVP SCH ×2 (08:27→22:35)
[2022-04-15] MEDS: HEPARIN SODIUM,PORCINE 5,000 UNITS/ML VIAL SUBCUT SCH ×2 (08:29→22:22)
[2022-04-15] MEDS: MUPIROCIN 2% TOPICAL OINTMENT 22 GM NS SCH ×2 (08:29→22:41)
[2022-04-15 08:32] LABS: ALBUMIN 1.8 g/dL (3.4-4.8); CREATININE 2.85 mg/dL (0.55-1.30)
[2022-04-15 08:42] LABS: TOTAL BILIRUBIN 26.6 mg/dL (0.0-1.0)
[2022-04-15] MEDS ORDERED: HEPARIN SODIUM,PORCINE 5,000 UNITS/ML VIAL MC ONE ×2 (10:30→10:45)
[2022-04-15] MEDS ORDERED: ALTEPLASE 2 MG VIAL MC ONE (12:45)
--- NOTE | 2022-04-15 14:30 | NUR ---
NOTICED RED TINGED COLOSTOMY OUTPUT, EMPTIED BAG AND 30 MINUTES LATER NOTED RED OUTPUT WITH BLOOD CLOTS, NOTIFIED DR SCHWARTZ THAT THE PATIENT MAY BE HAVING BLOODY COLOSTOMY OUTPUT AND RECEIVED HEPARIN TODAY DUE TO CIRHOSIS, NOTIFIED THAT BLOOD PRESSURE IS DROPPING WELL, ORDERED TO HAVE A STAT H&H PERFORMED. ALSO CALLED DR GANNON AWAITING CALL BACK.
--- NOTE | 2022-04-15 14:42 | NUR ---
Nutrition F/U Admitting Diagnosis Metabolic Encephalopathy Reviewed Pertinent Medical/Surgical Hx Medical Record ICU rounds Medical History Comment: PMH: end stage Liver cirrhosis, H/O stage 3 colon CA s/p hemicolectomy and colostomy placement, CKD, per physician notes SARS-CoV-2 Ag (Rapid) Negative 04/10 Subjective Information: RD attended ICU rounds this morning. Primary RN reported that pt pulled NGT last night and attending MD stated to start pureed diet as pt was able to tolerate thin liquids when reported by RN this morning; pt was able to drink 100% of Ensure and ate a bit of yogurt at breakfast; HD planned today; pt is AO x2; jaundiced. Per EMR review, pt is confused/disoriented; on 3 L O2 via NC; abd is soft w/ hypoactive bowel sounds; PO intake average of 50% x1 meal record; Jorge scale: 10 -- Steam Presser note 04/12 revealed 1. Sacral-Coccygeal area: Unstageable pressure ulcer, present on admission. 2. Left Heel: Blanchable redness, present on admission. 3. Right Heel: Blanchable redness, present on admission. 4. Right Lateral Heel: Blanchable redness, present on admission. 5. Right Lateral Mid Border of Foot: Blanchable redness, present on admission. 6. Right Lateral Fifth Metatarsal Head: Blanchable redness, present on admission. 7. Right Lateral Trunk: Several flat open blisters without fluid, along with two open dry red non-intact skin areas that were blisters, present on admission. Pt may benefit from supplementation and wound healing modular. Current Diet Order/Nutrition Support: Pureed x0 days Patient/Significant Other Unable To Verbalize Education Provided Not Indicated Pertinent Medications: heparin, piperacillin/tazobactam, sodium bicarb, lactulose, solu-medrol, protonix IV Pertinent Labs: BUN 45 H, CRE 2.85 H, BG 105 H, Bilirubin 26.6 H, AST 183 H, ALT 96 H, ALP 373 H, WBC 11.8 H Height (Feet) 5 feet Height (Inches) 10.00 inches Weight (Pounds) 214 pounds Weight (Ounces) 9.0 oz Weight (Calculated Kilograms) 97.411544 kilograms Patient Weight 97.324 kg Body Mass Index 30.70 kg/m2 %IBW 129 [place]/Adjusted Body Weight 166#/75.5 kg Recent Weight Change No - None per truck hopper Weight Status Obese Last BM Apr 11, 2022 Usual Diet At Home Unable to verify Current % PO NPO NEW Estimated Energy Expenditure (kcals/day) 0434-4656 kcals/day (30-35 kcals/kg IBW d/t obesity, CKD/HD, wound healing) NEW Estimated Protein Required (g/day) 76-113 (1-1.5 g/kg IBW d/t liver failure w/ encephalopathy, CKD/HD, wound healing) Estimated Fluid Required (l/day) Per MD d/t CKD Problem/Etiology/Signs/Symptoms Inadequate protein and energy intake r/t increased nutrient needs AEB NPO status. *Improving, now on PO diet Expected Outcomes/Goals Monitor NPO status, initiate diet when medically appropriate, labs trending WNL, normal GI function, skin integrity, wt maintenance. Dietitian Recommendations * Pureed, renal diet, Nepro TID, Shen BID (supplements yield 1440 kcal/day, 62 gm protein/day) * Encourage increase PO intakes Follow Up High Risk: F/U in 2-3 days
--- NOTE | 2022-04-15 14:51 | NUR ---
Dietitian Recommendations * Pureed, renal diet, Nepro TID, Shen BID (supplements yield 1440 kcal/day, 62 gm protein/day) * Encourage increase PO intakes LP, RD Please refer to Nutrition F/U for details.
[2022-04-15 15:39] LABS: HEMATOCRIT 24.2 % (36-54); MEAN CORPUSCULAR HEMOGLOBIN 32 pg (27-31); MEAN CORPUSCULAR HGB CONC 33 % (32-36); MEAN CORPUSCULAR VOLUME 98 fL (79.0-98.0); PLATELET COUNT (AUTO) 161 K/uL (130-430); RED BLOOD CELL COUNT(AUTO) 2.47 MIL/uL (4.2-6.2); RED CELL DISTRIBUTION WIDTH 15.3 % (9.0-15.0); WHITE BLOOD COUNT (AUTO) 16.2 K/uL (4.8-10.8)
[2022-04-15] MEDS: MIDODRINE HCL 5 MG TABLET (PROAMATINE) PO SCH ×2 (16:15→22:26)
--- NOTE | 2022-04-15 17:40 | NUR ---
PAGED DR SCHWARTZ TO NOTIFY OF H/H 06/09.2 BUT NO NEW ORDERS AND STILL NO CALL BACK FROM DR GANNON. ASKED IF WANTS TO CONTINUE PATIENT ON HEPARIN AND HE STATED YES TO CONTINUE HEPARIN DESPITE BLEEDING.
[2022-04-15] MEDS ORDERED: NS 250 ML IV ONE (18:15)
--- NOTE | 2022-04-15 19:13 | NUR ---
SPOKE WITH DR GANNON, HE ORDERED TO GIVE PATIENT BOLUS OF 250ML NS IF CLEARED BY NEPHROLOGY, CALLED DR GIRARD WHO WAS COVERING FOR DR HURTADO AND SHE STATED TO GIVE THE BOLUS, DR GANNON ALSO ORDERED TO GIVE OCTREOTIDE BOLUS OF 50 AND FOR DRIP TO BE CONTINUOUS 50MCG/HR, AWAITING ON PHARMACY TO BRING THE MEDICATION SO ENDORSED THE STARTING OF OCTREOTIDE TO SHORT FILLER BUNCH MACHINE OPERATOR RN, ALSO ORDERED FOR REPEAT H/H 4H AFTER LAST BLOOD DRAW WHICH WOULD BE FOR 1929, ORDER IN THE SYSTEM, NPO AFTER MIDNIGHT AND SHORT FILLER BUNCH MACHINE OPERATOR RN MADE AWARE. ENDORSED CONTINUATION OF CARE TO SHORT FILLER BUNCH MACHINE OPERATOR.
[2022-04-15 19:15] LABS: BAND % (MANUAL) 0 % (0-6); BASOPHILS % (MANUAL) 0 % (0-2); EOSINOPHILS % (MANUAL) 0 % (0-7); LYMPHOCYTES % (MANUAL) 3 % (20-46); MONOCYTES % (MANUAL) 3 % (0-11)
[2022-04-15] MEDS: OCTREOTIDE ACETATE 500 MCG in NS 97.5 ML IV SCH (19:22)
[2022-04-15] MEDS ORDERED: OCTREOTIDE ACETATE 50 MCG/ML AMP IVP ONE (19:30)
[2022-04-15 20:28] LABS: HEMATOCRIT 23.5 % (36-54); HEMOGLOBIN 7.7 g/dL (14.0-18.0)
[2022-04-15] MEDS ORDERED: NOREPINEPHRINE 4 MG/4 ML VIAL IV ONE (21:39)
[2022-04-15] MEDS: MENTHOL/ZINC OXIDE 113 GM OINT. TP PRN (22:28)
[2022-04-16] VITALS (27 sets, daily range): BP systolic 0–140
[2022-04-16] MEDS: PIPERACILLIN/TAZO 2.25G/DEX-IS 50 ML IV SCH ×4 (00:27→18:42)
[2022-04-16 00:43] LABS: HEMATOCRIT 23.3 % (36-54); HEMOGLOBIN 7.7 g/dL (14.0-18.0)
[2022-04-16] MEDS: SODIUM BICARBONATE 8.4% JECT 150 MEQ in D5W 1,000 ML IVP SCH (04:15)
[2022-04-16 06:10] LABS: HEMATOCRIT 23.3 % (36-54); HEMOGLOBIN 7.7 g/dL (14.0-18.0)
[2022-04-16 06:48] LABS: ALBUMIN 1.7 g/dL (3.4-4.8); BILIRUBIN,DIRECT 21.1 mg/dL (0.0-0.3)
[2022-04-16 08:29] LABS: INR 3.6 (0.80-1.20); PROTHROMBIN TIME 33.6 SECS (9.5-12.5)
[2022-04-16 08:31] LABS: TOTAL BILIRUBIN 25.9 mg/dL (0.0-1.0)
[2022-04-16] MEDS: PANTOPRAZOLE SODIUM 40 MG/VIAL (PROTONIX) IVP SCH ×2 (08:54→20:36)
[2022-04-16] MEDS: LACTULOSE 20 GM/30 ML UDC PO SCH ×3 (08:55→20:33)
[2022-04-16] MEDS: MENTHOL/ZINC OXIDE 113 GM OINT. TP PRN (08:55)
[2022-04-16] MEDS: HEPARIN SODIUM,PORCINE 5,000 UNITS/ML VIAL SUBCUT SCH (08:57)
[2022-04-16] MEDS: RIFAXIMIN 550 MG TABLET PO SCH ×2 (08:58→20:35)
[2022-04-16] MEDS: MIDODRINE HCL 5 MG TABLET (PROAMATINE) PO SCH ×3 (08:58→21:11)
[2022-04-16] MEDS: MUPIROCIN 2% TOPICAL OINTMENT 22 GM NS SCH ×2 (08:58→21:13)
[2022-04-16] MEDS: BALSAM PERU/CASTOR OIL 56.7 GM OINT...G. TP SCH (08:59)
[2022-04-16] MEDS ORDERED: PHYTONADIONE 10 MG/ML AMP SUBCUT ONE (09:00)
[2022-04-16 09:09] LABS: HEMATOCRIT 22.8 % (36-54); HEMOGLOBIN 7.3 g/dL (14.0-18.0)
--- NOTE | 2022-04-16 09:30 | NUR ---
PAGED DR PATEL TO REPORT CRITICAL LAB VALUES. Susy RETURNED CALLS AND NO NEW ORDERS HAVE BEEN RECEIVED. Dr. Patel to see the patient.
[2022-04-16] MEDS: OCTREOTIDE ACETATE 500 MCG in NS 97.5 ML IV SCH (15:22)
--- NOTE | 2022-04-16 15:38 | NUR ---
NOTIFIED OF CONSULT ORDERING PHY: REASON FOR CONSULT: ANEMIA DIALED: [phone] SPOKE TO: PLACIDO
--- NOTE | 2022-04-16 16:00 | NUR ---
Patient oxygen saturation beginning to decline. Dr. Patel called and new orders received.
[2022-04-16] MEDS ORDERED: NOREPINEPHRINE 4 MG/4 ML VIAL IV ONE ×3 (16:19→22:12)
[2022-04-16] MEDS: LevALBUTEROL HCL 1.25 MG/0.5 ML *CONC.* VIAL.NEB (XOPENEX CONC.) INH SCH ×2 (16:31→16:32)
--- NOTE | 2022-04-16 16:41 | NUR ---
Spoke with Dr. Quintero for patients blood rpessure declining and levophed being at its max rate. New orders received
[2022-04-16] MEDS ORDERED: ALBUMIN HUMAN 25% 100 ML IV ONE ×2 (16:45→17:15)
[2022-04-16] MEDS ORDERED: VASOPRESSIN 40 UNITS in NS 38 ML IV PRN (17:30)
[2022-04-16] MEDS ORDERED: NACL 0.9% 1,000 ML IV ONE (17:30)
--- NOTE | 2022-04-16 18:20 | NUR ---
Patient monitor showing v-fib and EKG has been ordered.
--- NOTE | 2022-04-16 18:30 | NUR ---
EKG ordered and Dr. Gastelum made aware. No new orders received.
[2022-04-16] MEDS: NOREPINEPHRINE BITARTRATE 16 MG in NS 234 ML IV PRN (18:45)
[2022-04-16] MEDS ORDERED: VASOPRESSIN 40 UNITS in NS 38 ML IV SCH (18:56)
[2022-04-16] MEDS ORDERED: NS 500 ML IV ONE (20:00)
[2022-04-17] VITALS: BP_SYST 147
== END 2022-04-16 23:17 | DRG 432 ==
LOC: SED 14:08 → SIC 17:51
PROVIDERS: ADMIT Family Medicine; ATTEND Family Medicine
PROC: 02HV33Z Insertion of Infusion Device into Superior Vena Cava, Percutaneous Approach (ICD-10-PCS; principal; 2022-04-11)
PROC: B548ZZA Ultrasonography of Superior Vena Cava, Guidance (ICD-10-PCS; 2022-04-11)
PROC: 5A1D70Z Performance of Urinary Filtration, Intermittent, Less than 6 Hours Per Day (ICD-10-PCS; 2022-04-11)
PROC: 5A1D70Z Performance of Urinary Filtration, Intermittent, Less than 6 Hours Per Day (ICD-10-PCS; 2022-04-13)
PROC: 5A1D70Z Performance of Urinary Filtration, Intermittent, Less than 6 Hours Per Day (ICD-10-PCS; 2022-04-15)
PROC: 5A09357 Assistance with Respiratory Ventilation, Less than 24 Consecutive Hours, Continuous Positive Airway Pressure (ICD-10-PCS; 2022-04-16)
DX: K70.30 Alcoholic cirrhosis of liver without ascites (principal); E43 Unspecified severe protein-calorie malnutrition; E72.20 Disorder of urea cycle metabolism, unspecified; N17.9 Acute kidney failure, unspecified; G93.40 Encephalopathy, unspecified; D68.9 Coagulation defect, unspecified; C18.9 Malignant neoplasm of colon, unspecified; K70.40 Alcoholic hepatic failure without coma; K70.11 Alcoholic hepatitis with ascites; T45.1X5A Adverse effect of antineoplastic and immunosuppressive drugs, initial encounter; I12.9 Hypertensive chronic kidney disease with stage 1 through stage 4 chronic kidney disease, or unspecified chronic kidney disease; N18.30 Chronic kidney disease, stage 3 unspecified; Z20.822 Contact with and (suspected) exposure to COVID-19; D64.9 Anemia, unspecified; Z68.29 Body mass index [BMI] 29.0-29.9, adult; Z93.3 Colostomy status; Z90.49 Acquired absence of other specified parts of digestive tract; Z87.891 Personal history of nicotine dependence; Z85.038 Personal history of other malignant neoplasm of large intestine; Y92.89 Other specified places as the place of occurrence of the external cause
CPT/HCPCS: 36415; 36600; 70450-TC; 71045; 74018; 76376; 76700-TC; 80053; 80074; 80076; 80162; 82140; 82803-TC; 83605; 83735; 83880; 84484; 85007; 85018; 85025; 85027; 85610-TC; 85730-TC; 87040; 87081; 90935; 90937; 93005; 94640; 94660; 94760; 96360; 99285; C9113; G0480; G0482; J1030; J1644; J2354; J2543; J2997; J3430; J3480; J7050; J7060; J7612; P9046